=== PATIENT | female | born 1995 | race Native Hawaiian/Other Pacific Islander ===

== ENCOUNTER 2017-04-17 01:08 | Outpatient (CLI) | payer OTHER, MEDICAID ==
[2017-04-17] MEDS ORDERED: LACTATED RINGERS 500 ML IV ONE (01:46)
[2017-04-17 01:54] VITALS: BP 118/60
== END 2017-04-17 02:16 | disposition home or self-care (01) ==
LOC: TRG 01:08
PROVIDERS: ATTEND Obstetrics & Gynecology
DX: O47.03 False labor before 37 completed weeks of gestation, third trimester (principal); Z3A.29 29 weeks gestation of pregnancy
CPT/HCPCS: 59025

== ENCOUNTER 2017-05-07 07:42 | Outpatient (CLI) | payer OTHER, MEDICAID ==
[2017-05-07] MEDS ORDERED: LACTATED RINGERS 500 ML IV ONE (08:27)
[2017-05-07 08:42] VITALS: BP 123/67
[2017-05-07 09:03] LABS: Bacteria,Urine 4+ /HPF (Negative); Bilirubin,Urine NEG (Negative); Blood,Urine NEG (Negative); Ketones,Urine NEG (Negative); Leukocyte Esterase,Urine NEG (Negative); Mucus,Urine FEW /HPF; Nitrite,Urine NEG (Negative); Urobilinogen,Urine < 2.0 mg/dL (<2.0)
[2017-05-07] MEDS ORDERED: ZOFRAN IV ONE (10:00)
== END 2017-05-07 11:23 | disposition home or self-care (01) ==
LOC: TRG 07:42
PROVIDERS: ATTEND Obstetrics & Gynecology
DX: O47.03 False labor before 37 completed weeks of gestation, third trimester (principal); Z3A.32 32 weeks gestation of pregnancy
CPT/HCPCS: 81001; 82962; 96360; 96374; J2405; J7120

== ENCOUNTER 2017-06-02 16:07 | Outpatient (CLI) | payer OTHER, MEDICAID ==
[2017-06-02] MEDS ORDERED: LACTATED RINGERS 500 ML IV ONE (16:40)
[2017-06-02 17:03] VITALS: BP 126/64
--- NOTE | 2017-06-02 19:28 | Event Note ---
Date: 06/02/17 (BPP 6/8; Consulted Dr. López) Pt sent from office after having decels on NST in office. IVFs infused NST reactive Catergory 1 strip BPP 02/03 off for breathing JOE 20 Spoke with Will d/c pt and have her return to L&D Tuesday for repeat NST and BPP. Pt states she has appointment with [facility]FM on Tuesday and she has OB appt on . Reviewed with pt hydration, kick count and for her to return on Tuesday morning 0900 for repeat testing. All questions addressed. Pt will call with LOF, ctx, bleeding, DFM.
--- NOTE | 2017-06-03 11:03 | Ultrasound Report ---
History: well being. BIOPHYSICAL PROFILE: 2 - breathing movements 2 - movements - posture and tone 2 to - Qualitative amniotic fluid volume 8 - TOTAL SCORE OF POSSIBLE 8 Heart Rate (bpm) 133 Gestation: Single Position: Cephalic Amniotic Fluid: JOE = 20.4 cm Heart Rate: 133 BPM
== END 2017-06-02 19:55 | disposition home or self-care (01) ==
LOC: TRG 16:07 → LD 17:42 → TRG 19:55
PROVIDERS: ATTEND Obstetrics & Gynecology
DX: O47.03 False labor before 37 completed weeks of gestation, third trimester (principal); Z3A.36 36 weeks gestation of pregnancy; Z79.899 Other long term (current) drug therapy
CPT/HCPCS: 76815; 76819; 82962; 96360; 96361; J7120

== ENCOUNTER 2017-06-05 08:50 | Outpatient (CLI) | payer OTHER, MEDICAID ==
[2017-06-05 09:02] VITALS: BP 101/48
--- NOTE | 2017-06-05 09:59 | Ultrasound Report ---
ULTRASOUND BIOPHYSICAL PROFILE: History: labor Technique: Transabdominal ultrasound with Doppler interrogation. 2 - breathing movements 2 - movements 2 - posture and tone 2 - Qualitative amniotic fluid volume 8 - TOTAL SCORE OF POSSIBLE 8 Heart Rate (bpm) 150
== END 2017-06-05 10:00 | disposition home or self-care (01) ==
LOC: TRG 08:50
PROVIDERS: ATTEND Obstetrics & Gynecology
DX: O47.03 False labor before 37 completed weeks of gestation, third trimester (principal); Z3A.36 36 weeks gestation of pregnancy
CPT/HCPCS: 59025; 76819